=== PATIENT | female | born 1955 | race Hispanic/Latino ===

== ENCOUNTER 2017-12-11 16:30 | Emergency (ER) | payer MEDICARE ==
[~2017-12-11 16:30] MED LIST: AEC81 PO; CARV3.12 PO; FENO40TA4 PO; FENO48TA4 PO; LISI-613 PO; NAPR-1023 PO; TRAM50TA4 PO
[2017-12-11 17:06] LABS: BASOPHILS % (AUTO) 0.9 % (0.0-5.0); EOSINOPHILS % (AUTO) 1.4 % (0.0-8.0); HEMATOCRIT 39.1 % (36-48); LYMPHOCYTES % (AUTO) 32.1 % (21.0-51.0); MEAN CORPUSCULAR HEMOGLOBIN 30.9 pg (27.0-33.0); MEAN CORPUSCULAR HGB CONC 34.5 g/dL (32.0-36.0); MEAN CORPUSCULAR VOLUME 89.8 fL (79-99); MONOCYTES % (AUTO) 4.8 % (3.0-13.0); NEUTROPHILS % (AUTO) 60.8 % (40.0-77.0); PLATELET COUNT (AUTO) 244 K/uL (130-400); RED BLOOD CELL COUNT(AUTO) 4.35 MIL/uL (4.00-5.50); RED CELL DISTRIBUTION WIDTH 12.8 % (11.0-15.5); WHITE BLOOD COUNT (AUTO) 8.5 K/uL (4.8-10.8)
[2017-12-11 17:17] LABS: INR 0.95 (0.85-1.15); PARTIAL THROMBOPLASTIN TIME 23.8 SEC (26.3-35.5)
[2017-12-11 17:20] LABS: CREATININE 1.4 mg/dL (0.5-1.5); POTASSIUM 4.8 mmol/L (3.5-5.1)
[2017-12-11 17:22] LABS: ALBUMIN 4.4 g/dL (3.5-5.0); BILIRUBIN,TOTAL 0.4 mg/dL (0.2-1.0); TOTAL PROTEIN, SERUM 8.6 g/dL (6.0-8.3)
[2017-12-11] MEDS ORDERED: DiphenhydrAMINE HCL 50 MG/ML VIAL ONE (17:35)
[2017-12-11] MEDS ORDERED: ONDANSETRON HCL MDV 20ML 2 MG/ML VIAL ONE ×2 (17:36→19:40)
[2017-12-11] MEDS ORDERED: SODIUM CHLORIDE 0.9% 1000ML 1,000 ML IV ONE (17:36)
[2017-12-11 17:55] LABS: APPEARANCE,URINE Clear (CLEAR); BILIRUBIN,URINE Negative (NEGATIVE); COLOR,URINE Yellow (YELLOW); GLUCOSE, URINE (UA) Negative (NEGATIVE); KETONES,URINE Negative (NEGATIVE); LEUKOCYTE ESTERASE ,URINE Negative (NEGATIVE); NITRATE,URINE Negative (NEGATIVE); OCCULT BLOOD,URINE Negative (NEGATIVE); PH,URINE 6.5 (5.0-8.0); PROTEIN,URINE Trace (NEGATIVE); UROBILINOGEN,URINE 0.2 mg/dL (0.2-1.0)
[2017-12-11 18:10] LABS: BACTERIA,URINE Few /HPF (None Seen); RBC,URINE None Seen /HPF (0-1); SQUAMOUS EPITHELIAL CELL,UR 30-50 /HPF (0-2)
[2018-02-11] MEDS ORDERED: INSU3INS3 SQ ×2 (13:08)
[2018-02-11] MEDS ORDERED: TRAM50TA4 PO (13:08)
[2018-02-11] MEDS ORDERED: OMEP40CA37 PO (13:08)
== END 2017-12-11 20:41 | disposition home or self-care (01) ==
LOC: EDH 16:30
DX: R11.2 Nausea with vomiting, unspecified (principal); R20.2 Paresthesia of skin; M19.90 Unspecified osteoarthritis, unspecified site; E11.9 Type 2 diabetes mellitus without complications; E78.5 Hyperlipidemia, unspecified; I10 Essential (primary) hypertension; R79.1 Abnormal coagulation profile; Z90.49 Acquired absence of other specified parts of digestive tract; Z98.890 Other specified postprocedural states
CPT/HCPCS: 36415; 80053; 81001; 82948; 84484; 85025; 85610; 85730; 93005; 96361; 96374; 96375; 99285; J1200; J7030

== ENCOUNTER 2017-12-30 14:30 | Inpatient (IN) | payer MEDICARE ==
[2017-12-30 14:53] LABS: APPEARANCE,URINE Clear (CLEAR); BILIRUBIN,URINE Negative (NEGATIVE); COLOR,URINE Yellow (YELLOW); GLUCOSE, URINE (UA) >=1000 mg/dL (NEGATIVE); KETONES,URINE Trace mg/dL (NEGATIVE); LEUKOCYTE ESTERASE ,URINE Negative (NEGATIVE); NITRATE,URINE Positive (NEGATIVE); OCCULT BLOOD,URINE Negative (NEGATIVE); PH,URINE 5.5 (5.0-8.0); PROTEIN,URINE Trace (NEGATIVE); UROBILINOGEN,URINE 0.2 mg/dL (0.2-1.0)
[2017-12-30 14:59] LABS: BASOPHILS % (AUTO) 0.4 % (0.0-5.0); EOSINOPHILS % (AUTO) 0.9 % (0.0-8.0); HEMATOCRIT 34.7 % (36-48); LYMPHOCYTES % (AUTO) 20.8 % (21.0-51.0); MEAN CORPUSCULAR HEMOGLOBIN 30.9 pg (27.0-33.0); MEAN CORPUSCULAR HGB CONC 35.1 g/dL (32.0-36.0); MEAN CORPUSCULAR VOLUME 88.1 fL (79-99); MONOCYTES % (AUTO) 6.2 % (3.0-13.0); NEUTROPHILS % (AUTO) 71.7 % (40.0-77.0); PLATELET COUNT (AUTO) 209 K/uL (130-400); RED BLOOD CELL COUNT(AUTO) 3.94 MIL/uL (4.00-5.50); RED CELL DISTRIBUTION WIDTH 12.7 % (11.0-15.5); WHITE BLOOD COUNT (AUTO) 10.1 K/uL (4.8-10.8)
[2017-12-30 15:02] LABS: BACTERIA,URINE Few /HPF (None Seen); RBC,URINE None Seen /HPF (0-1); WBC,URINE 0-1 /HPF (0-1)
[2017-12-30 15:10] LABS: INR 0.96 (0.85-1.15); PARTIAL THROMBOPLASTIN TIME 21.2 SEC (26.3-35.5); PROTHROMBIN TIME 10.1 SEC (9.6-11.6)
[2017-12-30 15:22] LABS: ALBUMIN 3.9 g/dL (3.5-5.0); BILIRUBIN,TOTAL 0.5 mg/dL (0.2-1.0); CREATININE 1.7 mg/dL (0.5-1.5); POTASSIUM 4.3 mmol/L (3.5-5.1); TOTAL PROTEIN, SERUM 7.6 g/dL (6.0-8.3)
[2017-12-30] MEDS ORDERED: SODIUM CHLORIDE 0.9% 1000ML 1,000 ML IV ONE (15:28)
[2017-12-30] MEDS ORDERED: INSULIN HUMULIN R 100 UNIT/ML 3ML ONE (15:29)
[2017-12-30] MEDS ORDERED: KETOROLAC TROMETHAMINE 30MG/ML ONE (15:35)
[2017-12-30] MEDS ORDERED: ONDANSETRON HCL 4 MG/2 ML VIAL ONE (16:58)
[2017-12-30] MEDS ORDERED: MORPHINE SULFATE 4 MG/1ML SYG ONE (16:58)
[2017-12-30] MEDS ORDERED: FENO145T37 PO (19:07)
[2017-12-30] MEDS ORDERED: IBUP-2070 PO (19:07)
[2017-12-30] MEDS ORDERED: METF10004 PO (19:07)
[2017-12-30] MEDS ORDERED: HYDR12.54 PO (19:07)
[2017-12-30] MEDS: MORPHINE SULFATE 4 MG/1ML SYG IVP PRN (19:51)
[2017-12-30 20:00] VITALS: BP 151/69
[2017-12-30] MEDS ORDERED: IBUPROFEN 600 MG TABLET PO SCH (20:30)
[2017-12-30] MEDS ORDERED: INSULIN R PO SS1 SQ SCH (21:00)
[2017-12-30] MEDS: FAMOTIDINE/PF 20 MG/2 ML VIAL IV SCH (21:19)
[2017-12-30] MEDS: DEXTROSE 5 % AND 0.9 % NACL 1,000 ML IV SCH (21:19)
[2017-12-31] VITALS: BP 133/57
[2017-12-31] MEDS: INSULIN HUMULIN R 100 UNIT/ML 3ML SQ SCH ×3 (00:16→13:10)
[2017-12-31] MEDS: ONDANSETRON HCL 4 MG/2 ML VIAL IVP PRN ×2 (02:03→12:59)
[2017-12-31] MEDS: MORPHINE SULFATE 4 MG/1ML SYG IVP PRN ×5 (02:03→21:26)
[2017-12-31] MEDS: DEXTROSE 5 % AND 0.9 % NACL 1,000 ML IV SCH ×2 (02:05→08:48)
[2017-12-31 04:00] VITALS: BP 155/66
[2017-12-31 04:47] LABS: HEMATOCRIT 29.5 % (36-48); MEAN CORPUSCULAR HEMOGLOBIN 31.5 pg (27.0-33.0); MEAN CORPUSCULAR HGB CONC 35.6 g/dL (32.0-36.0); MEAN CORPUSCULAR VOLUME 88.5 fL (79-99); PLATELET COUNT (AUTO) 173 K/uL (130-400); RED BLOOD CELL COUNT(AUTO) 3.34 MIL/uL (4.00-5.50); RED CELL DISTRIBUTION WIDTH 13.2 % (11.0-15.5); WHITE BLOOD COUNT (AUTO) 7.8 K/uL (4.8-10.8)
[2017-12-31 05:00] LABS: CREATININE 1.2 mg/dL (0.5-1.5); POTASSIUM 3.8 mmol/L (3.5-5.1)
[2017-12-31 07:30] VITALS: BP 144/67
[2017-12-31] MEDS: FAMOTIDINE/PF 20 MG/2 ML VIAL IV SCH ×2 (08:39→20:21)
[2017-12-31] MEDS: ENOXAPARIN SODIUM 40 MG/0.4 ML SYRINGE SQ SCH (08:39)
[2017-12-31 10:02] LABS: CHOLESTEROL 197 mg/dL (<200); HDL CHOLESTEROL 25 mg/dL (35-85); LDL DIRECT 87 mg/dL (0-99); TRIGLYCERIDES 524 mg/dL (30-200)
[2017-12-31 11:00] VITALS: BP 159/78
[2017-12-31] MEDS ORDERED: SODIUM CHLORIDE 0.9% 1000ML 1,000 ML IV ONE (12:57)
[2017-12-31 16:00] VITALS: BP 195/79
[2017-12-31] MEDS: HYDRALAZINE HCL 20 MG/ML VIAL IV PRN (16:51)
[2017-12-31] MEDS: FENOFIBRATE NANOCRYSTALLIZED 145 MG TAB PO SCH (20:21)
[2017-12-31 20:57] VITALS: BP 143/74
[2017-12-31] MEDS: SODIUM CHLORIDE 0.9% 1000ML 1,000 ML IV SCH (21:20)
[2018-01-01] VITALS (7 sets, daily range): BP systolic 131–158; BP diastolic 62–81
[2018-01-01] MEDS: MORPHINE SULFATE 4 MG/1ML SYG IVP PRN ×3 (01:33→17:06)
[2018-01-01] MEDS: INSULIN HUMULIN R 100 UNIT/ML 3ML SQ SCH ×4 (01:37→16:49)
[2018-01-01 05:04] LABS: HEMATOCRIT 28.8 % (36-48); MEAN CORPUSCULAR HEMOGLOBIN 31.3 pg (27.0-33.0); MEAN CORPUSCULAR HGB CONC 35.6 g/dL (32.0-36.0); PLATELET COUNT (AUTO) 176 K/uL (130-400); RED BLOOD CELL COUNT(AUTO) 3.27 MIL/uL (4.00-5.50); RED CELL DISTRIBUTION WIDTH 13.2 % (11.0-15.5); WHITE BLOOD COUNT (AUTO) 9.8 K/uL (4.8-10.8)
[2018-01-01 05:29] LABS: POTASSIUM 3.2 mmol/L (3.5-5.1)
[2018-01-01] MEDS ORDERED: ACETAMINOPHEN 325 MG TAB PO PRN ×2 (10:00)
[2018-01-01] MEDS ORDERED: GUAIFENESIN-DM 200/20 MG 10 ML PO PRN (10:00)
[2018-01-01] MEDS ORDERED: HYDRALAZINE HCL 20 MG/ML VIAL IV PRN (10:00)
[2018-01-01] MEDS ORDERED: MAG HYDROX/AL HYDROX/SIMETH ES 30 ML SUSP UDCUP PO PRN (10:00)
[2018-01-01] MEDS ORDERED: LIDOCAINE HCL-MPF 1% 2ML VIAL IVP PRN (10:00)
[2018-01-01] MEDS ORDERED: POTASSIUM CHLORIDE 10% ELIXIR 20 MEQ/15 ML UDCUP PO PRN (10:00)
[2018-01-01] MEDS ORDERED: LACTULOSE 20 GM/30 ML UDCUP PO PRN (10:00)
[2018-01-01] MEDS ORDERED: MAGNESIUM HYDROXIDE 30 ML/UDCUP PO PRN (10:00)
[2018-01-01] MEDS ORDERED: SIMETHICONE 80 MG TAB.CHEW PO SCH (10:00)
[2018-01-01] MEDS ORDERED: NITROGLYCERIN 0.4 MG SL TAB SL PRN (10:00)
[2018-01-01] MEDS ORDERED: ONDANSETRON HCL 4 MG/2 ML VIAL IV PRN (10:00)
[2018-01-01] MEDS: SODIUM CHLORIDE 0.9% 1000ML 1,000 ML IV SCH ×2 (11:04→16:13)
[2018-01-01] MEDS: FAMOTIDINE/PF 20 MG/2 ML VIAL IV SCH ×2 (11:04→20:34)
[2018-01-01] MEDS: ENOXAPARIN SODIUM 40 MG/0.4 ML SYRINGE SQ SCH (11:05)
[2018-01-01] MEDS: SIMETHICONE 80 MG TAB.CHEW PO SCH ×3 (12:18→20:35)
[2018-01-01] MEDS: POTASSIUM CHLORIDE 20MEQ/100ML 100 ML IV PRN ×2 (16:13→20:35)
[2018-01-01] MEDS: FENOFIBRATE NANOCRYSTALLIZED 145 MG TAB PO SCH (20:35)
[2018-01-02] MEDS: SODIUM CHLORIDE 0.9% 1000ML 1,000 ML IV SCH ×2 (03:01→15:34)
[2018-01-02] MEDS: MORPHINE SULFATE 4 MG/1ML SYG IVP PRN ×3 (03:18→22:35)
[2018-01-02 04:16] VITALS: BP 156/70
[2018-01-02 05:24] LABS: HEMATOCRIT 25.9 % (36-48); MEAN CORPUSCULAR HEMOGLOBIN 32.9 pg (27.0-33.0); MEAN CORPUSCULAR HGB CONC 37.3 g/dL (32.0-36.0); MEAN CORPUSCULAR VOLUME 88.3 fL (79-99); PLATELET COUNT (AUTO) 143 K/uL (130-400); RED BLOOD CELL COUNT(AUTO) 2.93 MIL/uL (4.00-5.50); RED CELL DISTRIBUTION WIDTH 12.8 % (11.0-15.5); WHITE BLOOD COUNT (AUTO) 6.5 K/uL (4.8-10.8)
[2018-01-02 05:33] LABS: BAND NEUTROPHILS % (MANUAL) 5 % (0-2); LYMPHOCYTES % (MANUAL) 22 % (22-44); MAN.DIFF COMMENT-IMPRESSION MANUAL DIFFERENTIAL; MONOCYTES % (MANUAL) 10 % (2-9); PLATELET MORPHOLOGY COMMENT ADEQUATE; SEGMENTED NEUTROPHILS % 63 % (40-70)
[2018-01-02 05:36] LABS: ALBUMIN 2.6 g/dL (3.5-5.0); BILIRUBIN,TOTAL 0.6 mg/dL (0.2-1.0); CREATININE 0.8 mg/dL (0.5-1.5); MAGNESIUM 1.1 mg/dL (1.80-2.40); POTASSIUM 4.1 mmol/L (3.5-5.1); TOTAL PROTEIN, SERUM 6.1 g/dL (6.0-8.3)
[2018-01-02] MEDS: INSULIN HUMULIN R 100 UNIT/ML 3ML SQ SCH ×5 (06:00→21:04)
[2018-01-02 07:30] VITALS: BP 144/66
[2018-01-02] MEDS: SIMETHICONE 80 MG TAB.CHEW PO SCH ×4 (09:04→20:36)
[2018-01-02] MEDS: FAMOTIDINE/PF 20 MG/2 ML VIAL IV SCH ×2 (09:05→20:35)
[2018-01-02] MEDS: ENOXAPARIN SODIUM 40 MG/0.4 ML SYRINGE SQ SCH (09:05)
[2018-01-02] MEDS ORDERED: MAGNESIUM 2GM PREMIX 50ML 50 ML IV SCH (09:30)
[2018-01-02] MEDS ORDERED: BISACODYL 5 MG TABLET.DR PO PRN (09:30)
[2018-01-02] MEDS ORDERED: ONDANSETRON HCL MDV 20ML 2 MG/ML VIAL IVP PRN (09:51)
[2018-01-02 11:00] VITALS: BP 153/72
[2018-01-02 16:00] VITALS: BP 179/82
[2018-01-02] MEDS: HYDRALAZINE HCL 20 MG/ML VIAL IV PRN (18:59)
[2018-01-02 20:00] VITALS: BP 174/75
[2018-01-02] MEDS: FENOFIBRATE NANOCRYSTALLIZED 145 MG TAB PO SCH (20:35)
[2018-01-02] MEDS ORDERED: LISINOPRIL 40 MG TABLET ONE (20:56)
[2018-01-03] VITALS (7 sets, daily range): BP systolic 137–174; BP diastolic 59–85
[2018-01-03] MEDS: MORPHINE SULFATE 4 MG/1ML SYG IVP PRN ×4 (02:30→20:16)
[2018-01-03 05:22] LABS: CREATININE 0.8 mg/dL (0.5-1.5); POTASSIUM 3.9 mmol/L (3.5-5.1)
[2018-01-03] MEDS: SODIUM CHLORIDE 0.9% 1000ML 1,000 ML IV SCH (06:27)
[2018-01-03] MEDS: INSULIN HUMULIN R 100 UNIT/ML 3ML SQ SCH ×4 (07:40→20:19)
[2018-01-03] MEDS: FAMOTIDINE/PF 20 MG/2 ML VIAL IV SCH ×2 (08:18→20:08)
[2018-01-03] MEDS: ENOXAPARIN SODIUM 40 MG/0.4 ML SYRINGE SQ SCH (08:22)
[2018-01-03] MEDS: LISINOPRIL 20 MG TABLET PO SCH (08:22)
[2018-01-03] MEDS: SIMETHICONE 80 MG TAB.CHEW PO SCH ×4 (08:22→20:09)
[2018-01-03 09:37] LABS: AMYLASE 30 U/L (25-115); LIPASE 258 U/L (114-286)
[2018-01-03] MEDS: FENOFIBRATE NANOCRYSTALLIZED 145 MG TAB PO SCH (20:08)
[2018-01-04 04:00] VITALS: BP 142/61
[2018-01-04 04:42] LABS: ALBUMIN 2.8 g/dL (3.5-5.0); BILIRUBIN,TOTAL 0.5 mg/dL (0.2-1.0); CREATININE 0.8 mg/dL (0.5-1.5); POTASSIUM 3.6 mmol/L (3.5-5.1); TOTAL PROTEIN, SERUM 6.4 g/dL (6.0-8.3)
[2018-01-04] MEDS: MORPHINE SULFATE 4 MG/1ML SYG IVP PRN ×4 (04:45→22:21)
[2018-01-04] MEDS: INSULIN HUMULIN R 100 UNIT/ML 3ML SQ SCH ×4 (06:21→22:13)
[2018-01-04 07:39] VITALS: BP 142/68
[2018-01-04] MEDS: SIMETHICONE 80 MG TAB.CHEW PO SCH ×4 (08:30→22:10)
[2018-01-04] MEDS: ENOXAPARIN SODIUM 40 MG/0.4 ML SYRINGE SQ SCH (08:31)
[2018-01-04] MEDS: FAMOTIDINE/PF 20 MG/2 ML VIAL IV SCH ×2 (08:31→22:10)
[2018-01-04] MEDS: LISINOPRIL 20 MG TABLET PO SCH (08:31)
[2018-01-04] MEDS ORDERED: SIME180C46 PO (10:12)
[2018-01-04] MEDS ORDERED: TRAM50TA2 PO (10:12)
[2018-01-04 11:27] VITALS: BP 127/59
[2018-01-04] MEDS: POTASSIUM CHLORIDE 20 MEQ ERTAB PO PRN ×2 (11:37→12:45)
[2018-01-04] MEDS: LEVOFLOXACIN 500 MG/D5W 100 ML 100 ML IV SCH (11:38)
[2018-01-04 16:00] VITALS: BP 161/78
[2018-01-04] MEDS: SODIUM CHLORIDE 0.9% 1000ML 1,000 ML IV SCH (17:06)
[2018-01-04] MEDS ORDERED: DIATR MEGLU/DIATRIZOATE SODIUM 30 ML BOTTLE ONE (17:40)
[2018-01-04 20:17] VITALS: BP 165/73
[2018-01-04] MEDS ORDERED: IOPAMIDOL-370 75 ML VIAL IV ONE (20:52)
[2018-01-04] MEDS: FENOFIBRATE NANOCRYSTALLIZED 145 MG TAB PO SCH (22:10)
[2018-01-05 01:06] VITALS: BP 142/69
[2018-01-05] MEDS: MORPHINE SULFATE 4 MG/1ML SYG IVP PRN ×4 (03:40→21:50)
[2018-01-05 04:35] VITALS: BP 161/69
[2018-01-05 05:41] LABS: HEMATOCRIT 29.7 % (36-48); MEAN CORPUSCULAR HEMOGLOBIN 30.3 pg (27.0-33.0); MEAN CORPUSCULAR HGB CONC 34.5 g/dL (32.0-36.0); MEAN CORPUSCULAR VOLUME 87.8 fL (79-99); PLATELET COUNT (AUTO) 229 K/uL (130-400); RED BLOOD CELL COUNT(AUTO) 3.38 MIL/uL (4.00-5.50); RED CELL DISTRIBUTION WIDTH 12.8 % (11.0-15.5); WHITE BLOOD COUNT (AUTO) 5.6 K/uL (4.8-10.8)
[2018-01-05 05:55] LABS: ALBUMIN 2.7 g/dL (3.5-5.0); BILIRUBIN,TOTAL 0.4 mg/dL (0.2-1.0); CREATININE 0.9 mg/dL (0.5-1.5); POTASSIUM 3.7 mmol/L (3.5-5.1); TOTAL PROTEIN, SERUM 6.3 g/dL (6.0-8.3)
[2018-01-05] MEDS: INSULIN HUMULIN R 100 UNIT/ML 3ML SQ SCH ×4 (05:55→21:26)
[2018-01-05 07:44] VITALS: BP 150/62
[2018-01-05] MEDS: FAMOTIDINE/PF 20 MG/2 ML VIAL IV SCH ×2 (09:49→21:19)
[2018-01-05] MEDS: SODIUM CHLORIDE 0.9% 1000ML 1,000 ML IV SCH ×2 (09:49→21:19)
[2018-01-05] MEDS: LISINOPRIL 20 MG TABLET PO SCH (09:50)
[2018-01-05] MEDS: LEVOFLOXACIN 500 MG/D5W 100 ML 100 ML IV SCH (09:50)
[2018-01-05] MEDS: SIMETHICONE 80 MG TAB.CHEW PO SCH ×4 (09:50→21:19)
[2018-01-05] MEDS: ENOXAPARIN SODIUM 40 MG/0.4 ML SYRINGE SQ SCH (09:51)
[2018-01-05 11:30] VITALS: BP 145/73
[2018-01-05 16:25] VITALS: BP 146/81
[2018-01-05] MEDS: FENOFIBRATE NANOCRYSTALLIZED 145 MG TAB PO SCH (21:18)
[2018-01-05 21:23] VITALS: BP 151/75
[2018-01-06 00:49] VITALS: BP 137/64
[2018-01-06 04:54] VITALS: BP 139/61
[2018-01-06] MEDS: INSULIN HUMULIN R 100 UNIT/ML 3ML SQ SCH ×2 (05:49→12:15)
[2018-01-06 05:52] LABS: ALBUMIN 2.8 g/dL (3.5-5.0); BILIRUBIN,TOTAL 0.4 mg/dL (0.2-1.0); CREATININE 0.9 mg/dL (0.5-1.5); POTASSIUM 3.7 mmol/L (3.5-5.1); TOTAL PROTEIN, SERUM 6.3 g/dL (6.0-8.3)
[2018-01-06 07:48] VITALS: BP 148/75
[2018-01-06] MEDS: SIMETHICONE 80 MG TAB.CHEW PO SCH (08:11)
[2018-01-06] MEDS: LISINOPRIL 20 MG TABLET PO SCH (08:11)
[2018-01-06] MEDS: FAMOTIDINE/PF 20 MG/2 ML VIAL IV SCH (08:11)
[2018-01-06] MEDS: POTASSIUM CHLORIDE 20 MEQ ERTAB PO PRN ×2 (08:12→12:16)
[2018-01-06] MEDS: ENOXAPARIN SODIUM 40 MG/0.4 ML SYRINGE SQ SCH (08:12)
[2018-01-06] MEDS: MORPHINE SULFATE 4 MG/1ML SYG IVP PRN (08:13)
[2018-01-06] MEDS ORDERED: LEVO500T2 PO (10:35)
[2018-01-06] MEDS: LEVOFLOXACIN 500 MG/D5W 100 ML 100 ML IV SCH (11:15)
[2018-01-06 11:36] VITALS: BP 151/71
[2018-02-11] MEDS ORDERED: TRAM50TA4 PO (13:08)
[2018-02-11] MEDS ORDERED: OMEP40CA37 PO (13:08)
[2018-02-11] MEDS ORDERED: INSU3INS3 SQ ×2 (13:08)
== END 2018-01-06 13:27 | disposition home or self-care (01) | DRG 439 ==
LOC: EDH 14:30 → EDHIP 15:49 → 4BH 18:33
PROVIDERS: ADMIT Internal Medicine; ATTEND Internal Medicine
DX: K85.90 Acute pancreatitis without necrosis or infection, unspecified (principal); N17.9 Acute kidney failure, unspecified; K86.3 Pseudocyst of pancreas; N39.0 Urinary tract infection, site not specified; K76.0 Fatty (change of) liver, not elsewhere classified; E11.65 Type 2 diabetes mellitus with hyperglycemia; B96.1 Klebsiella pneumoniae [K. pneumoniae] as the cause of diseases classified elsewhere; E86.0 Dehydration; K86.1 Other chronic pancreatitis; E78.5 Hyperlipidemia, unspecified; I10 Essential (primary) hypertension; M19.90 Unspecified osteoarthritis, unspecified site; Z79.4 Long term (current) use of insulin; Z90.49 Acquired absence of other specified parts of digestive tract; Z86.73 Personal history of transient ischemic attack (TIA), and cerebral infarction without residual deficits; Z83.3 Family history of diabetes mellitus; Z82.3 Family history of stroke
CPT/HCPCS: 36415; 71045; 74176; 74178; 80048; 80053; 80061; 81001; 82009; 82150; 82550; 82553; 82948; 83690; 83735; 84484; 85025; 85027; 85610; 85730; 87088; 87186; 93005; J0360; J1650; J1815; J1885; J1956; J2270; J2405; J3475; J3480; J3490; J7030; J7042; Q9963; Q9967

== ENCOUNTER 2018-01-26 15:33 | Observation (INO) | payer MEDICARE ==
[~2018-01-26] VITALS: Ht 154.9 cm; Wt 59.4 kg
[~2018-01-26 15:33] MED LIST changes: -AEC81 PO; -CARV3.12 PO; +FENO145T37 PO; -FENO40TA4 PO; -FENO48TA4 PO; +HYDR12.54 PO; +IBUP-2070 PO; +LEVO500T2 PO; +METF10004 PO; -NAPR-1023 PO; +SIME180C46 PO; +TRAM50TA2 PO; -TRAM50TA4 PO
[2018-01-26] MEDS ORDERED: ONDANSETRON HCL 4 MG/2 ML VIAL ONE (16:14)
[2018-01-26 16:15] LABS: BASOPHILS % (AUTO) 0.7 % (0.0-5.0); EOSINOPHILS % (AUTO) 2.4 % (0.0-8.0); HEMATOCRIT 35.9 % (36-48); LYMPHOCYTES % (AUTO) 20.2 % (21.0-51.0); MEAN CORPUSCULAR HEMOGLOBIN 30.7 pg (27.0-33.0); MEAN CORPUSCULAR HGB CONC 34.3 g/dL (32.0-36.0); MEAN CORPUSCULAR VOLUME 89.5 fL (79-99); MONOCYTES % (AUTO) 7.2 % (3.0-13.0); NEUTROPHILS % (AUTO) 69.5 % (40.0-77.0); PLATELET COUNT (AUTO) 173 K/uL (130-400); RED BLOOD CELL COUNT(AUTO) 4.01 MIL/uL (4.00-5.50); RED CELL DISTRIBUTION WIDTH 13.2 % (11.0-15.5); WHITE BLOOD COUNT (AUTO) 6.8 K/uL (4.8-10.8)
[2018-01-26 16:28] LABS: INR 0.94 (0.85-1.15); PARTIAL THROMBOPLASTIN TIME 22.7 SEC (26.3-35.5); PROTHROMBIN TIME 9.9 SEC (9.6-11.6)
[2018-01-26] MEDS ORDERED: SODIUM CHLORIDE 0.9% 1000ML 1,000 ML IV ONE ×2 (16:30→16:50)
[2018-01-26 16:36] LABS: APPEARANCE,URINE Clear (CLEAR); BILIRUBIN,URINE Negative (NEGATIVE); COLOR,URINE Yellow (YELLOW); GLUCOSE, URINE (UA) >=1000 mg/dL (NEGATIVE); KETONES,URINE Negative (NEGATIVE); LEUKOCYTE ESTERASE ,URINE Negative (NEGATIVE); NITRATE,URINE Negative (NEGATIVE); OCCULT BLOOD,URINE Negative (NEGATIVE); PROTEIN,URINE Negative (NEGATIVE); UROBILINOGEN,URINE 0.2 mg/dL (0.2-1.0)
[2018-01-26 16:40] LABS: ALANINE AMINOTRANSFERASE 33 U/L (12-78); ALBUMIN 3.8 g/dL (3.5-5.0); AMYLASE 27 U/L (25-115); ASPARTATE AMINOTRANSFERASE 25 U/L (10-37); BILIRUBIN,TOTAL 0.6 mg/dL (0.2-1.0); CARBON DIOXIDE 25 mmol/L (21-32); CHLORIDE 92 mmol/L (101-111); CREATINE KINASE MB < 0.5 ng/mL (0.5-3.6); CREATINE KINASE, TOTAL 43 U/L (21-232); CREATININE 1.8 mg/dL (0.5-1.5); GLOMERULAR FILTR. RATE CALC 30 mL/min (>60); SODIUM SERUM 130 mmol/L (136-145); TOTAL PROTEIN, SERUM 7.7 g/dL (6.0-8.3); UREA NITROGEN, BLOOD 27 mg/dL (7-18)
[2018-01-26 16:42] LABS: GLUCOSE,RANDOM 708 mg/dL (70-105)
[2018-01-26 16:44] LABS: AMPHET/METH SCREEN,URINE NEGATIVE (NEGATIVE); BARBITURATE SCREEN, URINE NEGATIVE (NEGATIVE); BENZODIAZEPINES SCREEN,URINE NEGATIVE (NEGATIVE); CANNABINOID SCREEN,URINE NEGATIVE (NEGATIVE); COCAINE SCREEN,URINE NEGATIVE (NEGATIVE); OPIATE SCREEN,URINE NEGATIVE (NEGATIVE); PHENCYCLIDINE SCREEN,URINE NEGATIVE (NEGATIVE)
[2018-01-26 16:47] LABS: BACTERIA,URINE None Seen /HPF (None Seen); RBC,URINE None Seen /HPF (0-1); WBC,URINE None Seen /HPF (0-1)
[2018-01-26] MEDS ORDERED: INSULIN HUMULIN R 100 UNIT/ML 3ML ONE ×2 (16:47→18:16)
[2018-01-26] MEDS ORDERED: SODIUM CHLORIDE 0.9% 1000ML 1,000 ML IV SCH (19:15)
[2018-01-26] MEDS ORDERED: GLUCAGON 1MG KIT 1 MG ML IM PRN (19:15)
[2018-01-26] MEDS ORDERED: DEXTROSE 50%-WATER 50 ML DISP.SYRIN IV PRN (19:15)
[2018-01-26 21:37] VITALS: BP 153/71
[2018-01-26] MEDS: INSULIN GLARGINE 100 UNITS/ML 10 ML VIAL SQ SCH (22:37)
[2018-01-26] MEDS: INSULIN HUMULIN R 100 UNIT/ML 3ML SQ SCH (22:38)
[2018-01-26] MEDS ORDERED: ONDANSETRON HCL MDV 20ML 2 MG/ML VIAL IVP PRN (22:45)
[2018-01-26] MEDS ORDERED: ACETAMINOPHEN 325 MG TAB PO PRN (22:45)
[2018-01-26] MEDS ORDERED: HYDRALAZINE HCL 20 MG/ML VIAL IV PRN (22:45)
[2018-01-26 23:00] VITALS: BP 132/54
[2018-01-27 03:00] VITALS: BP 130/57
[2018-01-27 05:44] LABS: BASOPHILS % (AUTO) 0.7 % (0.0-5.0); EOSINOPHILS % (AUTO) 5.8 % (0.0-8.0); HEMATOCRIT 30.3 % (36-48); LYMPHOCYTES % (AUTO) 41.9 % (21.0-51.0); MEAN CORPUSCULAR HEMOGLOBIN 31.9 pg (27.0-33.0); MEAN CORPUSCULAR HGB CONC 35.9 g/dL (32.0-36.0); MEAN CORPUSCULAR VOLUME 88.7 fL (79-99); MONOCYTES % (AUTO) 9.1 % (3.0-13.0); NEUTROPHILS % (AUTO) 42.5 % (40.0-77.0); NUCLEATED RED BLOOD CELLS 0.1 % (0.0-0.19); PLATELET COUNT (AUTO) 154 K/uL (130-400); RED BLOOD CELL COUNT(AUTO) 3.41 MIL/uL (4.00-5.50); WHITE BLOOD COUNT (AUTO) 5.7 K/uL (4.8-10.8)
[2018-01-27 06:11] LABS: BILIRUBIN,TOTAL 0.3 mg/dL (0.2-1.0); CREATININE 1.2 mg/dL (0.5-1.5); POTASSIUM 3.8 mmol/L (3.5-5.1); TOTAL PROTEIN, SERUM 6.1 g/dL (6.0-8.3)
[2018-01-27] MEDS: INSULIN GLARGINE 100 UNITS/ML 10 ML VIAL SQ SCH (06:27)
[2018-01-27] MEDS: INSULIN HUMULIN R 100 UNIT/ML 3ML SQ SCH ×3 (06:28→17:55)
[2018-01-27 07:00] VITALS: BP 132/57
[2018-01-27] MEDS ORDERED: ENOXAPARIN SODIUM 40 MG/0.4 ML SYRINGE SQ SCH (09:00)
[2018-01-27 11:00] VITALS: BP 129/67
[2018-01-27 16:00] VITALS: BP 131/63
[2018-02-11] MEDS ORDERED: INSU3INS3 SQ ×2 (13:08)
[2018-02-11] MEDS ORDERED: OMEP40CA37 PO (13:08)
[2018-02-11] MEDS ORDERED: TRAM50TA4 PO (13:08)
== END 2018-01-27 18:20 | disposition home or self-care (01) ==
LOC: EDH 15:33 → EDHIP 17:15 → 3CH 21:24
PROVIDERS: ADMIT Internal Medicine Nephrology; ATTEND Internal Medicine Nephrology
DX: E11.00 Type 2 diabetes mellitus with hyperosmolarity without nonketotic hyperglycemic-hyperosmolar coma (NKHHC) (principal); E87.1 Hypo-osmolality and hyponatremia; E86.0 Dehydration; E78.5 Hyperlipidemia, unspecified; R63.1 Polydipsia; Z83.3 Family history of diabetes mellitus; Z79.4 Long term (current) use of insulin
CPT/HCPCS: 36415 ×2; 80053 ×2; 80305; 81001; 82009; 82150; 82550; 82553; 82948 ×7; 83036; 84484; 85025 ×2; 85610; 85730; 93005; 96360; 96361; 96372 ×2; 99285; G0378 ×25; J1650; J1815 ×5; J2405; J7030 ×3

== ENCOUNTER 2018-02-12 06:45 | Day surgery (SDC) | payer MEDICARE ==
[~2018-02-12] VITALS: Ht 152.4 cm; Wt 63.5 kg
[~2018-02-12 06:45] MED LIST changes: -IBUP-2070 PO; +INSU3INS3 SQ; -LEVO500T2 PO; -LISI-613 PO; +OMEP40CA37 PO; -SIME180C46 PO; +SODIUM CHLORIDE 0.9% 1000ML 1,000 ML IV ONE; -TRAM50TA2 PO; +TRAM50TA4 PO
[2018-02-12 07:04] VITALS: BP 175/67
[2018-02-12] MEDS ORDERED: PROPOFOL 10 MG/ML 20ML VIAL IV ONE (07:42)
[2018-02-12 07:57] VITALS: BP 106/42
== END 2018-02-12 08:30 | disposition home or self-care (01) ==
LOC: DAH 06:45 → ENDO 06:45
PROVIDERS: ATTEND Internal Medicine Gastroenterology
DX: K86.89 Other specified diseases of pancreas (principal); K31.89 Other diseases of stomach and duodenum; E11.9 Type 2 diabetes mellitus without complications; E78.5 Hyperlipidemia, unspecified; I10 Essential (primary) hypertension; M19.90 Unspecified osteoarthritis, unspecified site; Z79.899 Other long term (current) drug therapy; Z79.4 Long term (current) use of insulin; Z90.49 Acquired absence of other specified parts of digestive tract; Z96.659 Presence of unspecified artificial knee joint
CPT/HCPCS: 43237; 82948 ×2; 93005; A4606; J2704; J7030; 43231

== ENCOUNTER → 2018-07-09 | Outpatient (CLI) | payer MEDICARE ==
[~2018-07-09] MED LIST changes: +METF-446 PO; -METF10004 PO; -SODIUM CHLORIDE 0.9% 1000ML 1,000 ML IV ONE
== END | disposition home or self-care (01) ==
LOC: RAH 08:40
PROVIDERS: ATTEND Internal Medicine Gastroenterology
DX: K30 Functional dyspepsia (principal)
CPT/HCPCS: 78264; A9541

== ENCOUNTER 2018-08-14 05:30 | Day surgery (SDC) | payer MEDICARE ==
[~2018-08-14] VITALS: Ht 154.9 cm; Wt 70.2 kg
[~2018-08-14 05:30] MED LIST changes: +NITR0.4T SL
[2018-08-14] MEDS ORDERED: SODIUM CHLORIDE 0.9% 1000ML 1,000 ML IV ONE (05:41)
[2018-08-14 05:59] VITALS: BP 198/77
[2018-08-14] MEDS ORDERED: PROPOFOL 10 MG/ML 20ML VIAL IV ONE (07:08)
[2018-08-14 07:17] VITALS: BP 133/61
[2018-08-14 07:22] VITALS: BP 139/65
[2018-08-14 07:27] VITALS: BP 149/70
[2018-08-14 07:34] VITALS: BP 139/64
== END 2018-08-14 07:48 | disposition home or self-care (01) ==
LOC: ENDO 05:30 → DAH 05:30 → ENDO 07:48
PROVIDERS: ATTEND Internal Medicine
DX: K86.1 Other chronic pancreatitis (principal); K31.89 Other diseases of stomach and duodenum; E11.9 Type 2 diabetes mellitus without complications; E78.5 Hyperlipidemia, unspecified; I10 Essential (primary) hypertension; M19.90 Unspecified osteoarthritis, unspecified site; Z79.899 Other long term (current) drug therapy; Z90.49 Acquired absence of other specified parts of digestive tract; Z98.890 Other specified postprocedural states; Z79.84 Long term (current) use of oral hypoglycemic drugs; K85.00 Idiopathic acute pancreatitis without necrosis or infection
CPT/HCPCS: 43237; 82948 ×2; A4606; J2704; J7030; 43231

== ENCOUNTER 2018-09-11 08:12 | Day surgery (SDC) | payer MEDICARE ==
[~2018-09-11] VITALS: Ht 152.4 cm; Wt 68.9 kg
[~2018-09-11 08:12] MED LIST changes: +SODIUM CHLORIDE 0.9% 1000ML 1,000 ML IV ONE
[2018-09-11 09:00] VITALS: BP 175/87
[2018-09-11] MEDS ORDERED: INSLAN SQ (09:19)
[2018-09-11] MEDS ORDERED: PROPOFOL 10 MG/ML 20ML VIAL IV ONE (10:05)
[2018-09-11 10:25] VITALS: BP 120/50
[2018-09-11 10:30] VITALS: BP 120/50
== END 2018-09-11 11:05 | disposition home or self-care (01) ==
LOC: DAH 08:12 → ENDO 08:12
PROVIDERS: ATTEND Internal Medicine
DX: K29.70 Gastritis, unspecified, without bleeding (principal); K86.9 Disease of pancreas, unspecified; E11.9 Type 2 diabetes mellitus without complications; E78.5 Hyperlipidemia, unspecified; I10 Essential (primary) hypertension; M19.90 Unspecified osteoarthritis, unspecified site; Z79.84 Long term (current) use of oral hypoglycemic drugs; Z79.899 Other long term (current) drug therapy; Z98.890 Other specified postprocedural states; R00.1 Bradycardia, unspecified; Z79.4 Long term (current) use of insulin
CPT/HCPCS: 43237; 82948 ×2; 93005; A4606; J2704; J7030; 43259

== ENCOUNTER → 2019-04-02 | Outpatient (CLI) | payer MEDICARE ==
[~2019-04-02] MED LIST changes: +INSLAN SQ; -INSU3INS3 SQ; -SODIUM CHLORIDE 0.9% 1000ML 1,000 ML IV ONE
== END | disposition home or self-care (01) ==
LOC: RAH 10:17
PROVIDERS: ATTEND Family Medicine
DX: Z12.31 Encounter for screening mammogram for malignant neoplasm of breast (principal)
CPT/HCPCS: 77067

== ENCOUNTER → 2019-05-22 | Outpatient (CLI) | payer MEDICARE ==
[~2019-05-22] MED LIST changes: +IOHEXOL-350 50ML VIAL IV ONE
== END | disposition home or self-care (01) ==
LOC: RAH 08:34
PROVIDERS: ATTEND Internal Medicine Gastroenterology
DX: K85.00 Idiopathic acute pancreatitis without necrosis or infection (principal); K76.89 Other specified diseases of liver; Z90.49 Acquired absence of other specified parts of digestive tract
CPT/HCPCS: 74170; Q9967 ×2

== ENCOUNTER 2019-08-05 23:27 | Emergency (ER) | payer MEDICARE ==
[~2019-08-05 23:27] MED LIST changes: -IOHEXOL-350 50ML VIAL IV ONE; +OMEP40CA13 PO; -OMEP40CA37 PO
[2019-08-06 00:02] LABS: APPEARANCE,URINE Clear (CLEAR); BILIRUBIN,URINE Negative (NEGATIVE); COLOR,URINE Yellow (YELLOW); GLUCOSE, URINE (UA) Negative (NEGATIVE); KETONES,URINE Negative (NEGATIVE); LEUKOCYTE ESTERASE ,URINE Small (NEGATIVE); NITRATE,URINE Negative (NEGATIVE); OCCULT BLOOD,URINE Trace (NEGATIVE); PROTEIN,URINE Negative (NEGATIVE); UROBILINOGEN,URINE 0.2 mg/dL (0.2-1.0)
[2019-08-06 00:18] LABS: BACTERIA,URINE Few /HPF (None Seen); RBC,URINE 0-1 /HPF (0-1)
[2019-08-06 00:40] LABS: BASOPHILS % (AUTO) 0.5 % (0.0-5.0); EOSINOPHILS % (AUTO) 1.6 % (0.0-8.0); HEMATOCRIT 35.4 % (36-48); LYMPHOCYTES % (AUTO) 26.4 % (21.0-51.0); MEAN CORPUSCULAR HEMOGLOBIN 29.9 pg (27.0-33.0); MEAN CORPUSCULAR HGB CONC 33.9 g/dL (32.0-36.0); MEAN CORPUSCULAR VOLUME 88.1 fL (79-99); MONOCYTES % (AUTO) 6.1 % (3.0-13.0); NEUTROPHILS % (AUTO) 65.2 % (40.0-77.0); PLATELET COUNT (AUTO) 197 K/uL (130-400); RED BLOOD CELL COUNT(AUTO) 4.02 MIL/uL (4.00-5.50); RED CELL DISTRIBUTION WIDTH 12.3 % (11.0-15.5); WHITE BLOOD COUNT (AUTO) 9.1 K/uL (4.8-10.8)
[2019-08-06 01:05] LABS: CREATININE 1.1 mg/dL (0.5-1.5); POTASSIUM 3.8 mmol/L (3.5-5.1)
[2019-08-06] MEDS ORDERED: SODIUM CHLORIDE 0.9% 500ML 500 ML IV ONE (01:09)
[2019-08-06] MEDS ORDERED: ONDANSETRON HCL 4 MG/2 ML VIAL ONE ×2 (01:09→02:39)
[2019-08-06] MEDS ORDERED: MORPHINE SULFATE 4 MG/1ML SYG ONE (01:09)
[2019-08-06] MEDS ORDERED: HYDRALAZINE HCL 20 MG/ML VIAL ONE (01:09)
[2019-08-06 01:10] LABS: ALBUMIN 3.5 g/dL (3.5-5.0); BILIRUBIN,TOTAL 0.3 mg/dL (0.2-1.0); TOTAL PROTEIN, SERUM 6.9 g/dL (6.0-8.3)
[2019-08-06] MEDS ORDERED: KETOROLAC TROMETHAMINE 30MG/ML ONE (02:00)
[2019-08-06] MEDS ORDERED: MAG HYDROX/AL HYDROX/SIMETH ES 30 ML SUSP UDCUP ONE (02:31)
[2019-08-06] MEDS ORDERED: LIDOCAINE HCL 2% VISCOUS 15 ML UDCUP ONE (02:31)
[2019-08-06] MEDS ORDERED: FAMOTIDINE/PF 20 MG/2 ML VIAL IV ONE (02:55)
== END 2019-08-06 03:39 | disposition home or self-care (01) ==
LOC: EDH 23:27
DX: K42.9 Umbilical hernia without obstruction or gangrene (principal); E11.9 Type 2 diabetes mellitus without complications; I10 Essential (primary) hypertension; M19.90 Unspecified osteoarthritis, unspecified site; E78.5 Hyperlipidemia, unspecified; Z90.49 Acquired absence of other specified parts of digestive tract
CPT/HCPCS: 36415; 80053; 81001; 82550; 82948; 83690; 84484; 85025; 93005; 96374; 96375; 96376; 99285; J0360; J1885; J2270; J2405 ×2; J3490; J7040

== ENCOUNTER 2019-10-25 22:56 | Emergency (ER) | payer OTHER, MEDICARE ==
[~2019-10-25 22:56] MED LIST changes: +FENO145T26 PO; -FENO145T37 PO
[2019-10-25 23:31] LABS: BASOPHILS % (AUTO) 0.4 % (0.0-5.0); EOSINOPHILS % (AUTO) 0.6 % (0.0-8.0); HEMATOCRIT 37.7 % (36-48); LYMPHOCYTES % (AUTO) 23.4 % (21.0-51.0); MEAN CORPUSCULAR HEMOGLOBIN 29.1 pg (27.0-33.0); MEAN CORPUSCULAR HGB CONC 33.2 g/dL (32.0-36.0); MEAN CORPUSCULAR VOLUME 87.9 fL (79-99); MONOCYTES % (AUTO) 5.9 % (3.0-13.0); NEUTROPHILS % (AUTO) 69.5 % (40.0-77.0); PLATELET COUNT (AUTO) 232 K/uL (130-400); RED BLOOD CELL COUNT(AUTO) 4.29 MIL/uL (4.00-5.50); RED CELL DISTRIBUTION WIDTH 12.3 % (11.0-15.5)
[2019-10-25] MEDS ORDERED: SODIUM CHLORIDE 0.9% 1000ML 1,000 ML IV ONE (23:35)
[2019-10-25 23:44] LABS: APPEARANCE,URINE Clear (CLEAR); BILIRUBIN,URINE Negative (NEGATIVE); COLOR,URINE Yellow (YELLOW); GLUCOSE, URINE (UA) 250 mg/dL (NEGATIVE); KETONES,URINE Trace mg/dL (NEGATIVE); LEUKOCYTE ESTERASE ,URINE Small (NEGATIVE); NITRATE,URINE Negative (NEGATIVE); OCCULT BLOOD,URINE Trace (NEGATIVE); PROTEIN,URINE POS 1+ mg/dL (NEGATIVE)
[2019-10-25 23:47] LABS: INR 0.93 (0.85-1.15); PARTIAL THROMBOPLASTIN TIME 24.9 SEC (26.3-35.5); PROTHROMBIN TIME 9.8 SEC (9.6-11.6)
[2019-10-25 23:54] LABS: CREATININE 1.2 mg/dL (0.5-1.5); POTASSIUM 4.1 mmol/L (3.5-5.1)
[2019-10-25 23:55] LABS: ALBUMIN 3.6 g/dL (3.5-5.0); BILIRUBIN,TOTAL 0.4 mg/dL (0.2-1.0); TOTAL PROTEIN, SERUM 7.8 g/dL (6.0-8.3)
[2019-10-26 00:02] LABS: BACTERIA,URINE Rare /HPF (None Seen); CALCIUM OXALATE CRYSTALS,UR Few /LPF (None Seen); SQUAMOUS EPITHELIAL CELL,UR Few /HPF (0-2)
[2019-10-26 00:08] LABS: ABG OXYGEN SATURATION 65.7 % (95.0-99.0); BASE EXCESS,VENOUS BLOOD GAS -2.5 (-2.0-3.0); HCO3,VENOUS BLOOD GAS 23.4 (21.0-28.0); PCO2,VENOUS BLOOD GAS 44 (32-45); PH,VENOUS BLOOD GAS 7.341 (7.350-7.450)
[2019-10-26] MEDS ORDERED: IOHEXOL-350 75 ML VIAL IV ONE (00:12)
[2019-10-26] MEDS ORDERED: LEVOFLOXACIN 750 MG/D5W 150 ML 150 ML ONE (01:45)
[2019-10-26] MEDS ORDERED: SODIUM CHLORIDE 0.9% 1000ML 1,000 ML IV ONE (01:45)
[2019-10-26] MEDS ORDERED: KETOROLAC TROMETHAMINE 30MG/ML ONE (01:46)
[2019-10-26] MEDS ORDERED: METRONIDAZOLE 500MG/100ML BAG 100 ML ONE (01:46)
== END 2019-10-26 03:49 | disposition home or self-care (01) ==
LOC: EDH 22:56
DX: K57.92 Diverticulitis of intestine, part unspecified, without perforation or abscess without bleeding (principal); M19.90 Unspecified osteoarthritis, unspecified site; E11.9 Type 2 diabetes mellitus without complications; E78.5 Hyperlipidemia, unspecified; I10 Essential (primary) hypertension; Z90.49 Acquired absence of other specified parts of digestive tract
CPT/HCPCS: 36415; 71045; 74177; 80053; 81001; 82010; 82550; 82803; 83605; 83690; 84484; 85025; 85610; 85730; 93005; 96365; 96367; 96375; 99285; J1885; J1956; J3490; J7030 ×2; Q9967

== ENCOUNTER 2019-10-29 19:19 | Emergency (ER) | payer OTHER, MEDICARE ==
[2019-10-29] MEDS ORDERED: IBUPROFEN 600 MG TABLET ONE (19:37)
== END 2019-10-29 21:20 | disposition home or self-care (01) ==
LOC: EDH 19:19
DX: S42.202A Unspecified fracture of upper end of left humerus, initial encounter for closed fracture (principal); M19.90 Unspecified osteoarthritis, unspecified site; E11.9 Type 2 diabetes mellitus without complications; E78.5 Hyperlipidemia, unspecified; I10 Essential (primary) hypertension; Z90.49 Acquired absence of other specified parts of digestive tract; V89.2XXA Person injured in unspecified motor-vehicle accident, traffic, initial encounter; Y93.89 Activity, other specified; Y92.488 Other paved roadways as the place of occurrence of the external cause; Y99.8 Other external cause status
CPT/HCPCS: 73030

== ENCOUNTER → 2019-11-07 | Outpatient (CLI) | payer OTHER, MEDICARE ==
[~2019-11-07] MED LIST changes: +GADODIAMIDE 10 MMOL/20 ML VIAL IV ONE
== END | disposition home or self-care (01) ==
LOC: RAH 07:38
PROVIDERS: ATTEND Internal Medicine Gastroenterology
DX: K76.89 Other specified diseases of liver (principal); K05.00 Acute gingivitis, plaque induced; Z90.49 Acquired absence of other specified parts of digestive tract
CPT/HCPCS: 36600; 74183; A9579

== ENCOUNTER → 2019-12-17 | Outpatient (CLI) | payer MEDICARE ==
[~2019-12-17] MED LIST changes: -GADODIAMIDE 10 MMOL/20 ML VIAL IV ONE
== END | disposition home or self-care (01) ==
LOC: RAH 10:00
PROVIDERS: ATTEND Internal Medicine Gastroenterology
DX: K57.30 Diverticulosis of large intestine without perforation or abscess without bleeding (principal); K42.9 Umbilical hernia without obstruction or gangrene
CPT/HCPCS: 74178

== ENCOUNTER 2020-07-27 12:07 | Emergency (ER) | payer OTHER, MEDICARE ==
[2020-07-27] MEDS ORDERED: SODIUM CHLORIDE 0.9% 1000ML 1,000 ML IV ONE (12:08)
[2020-07-27 12:46] LABS: BASOPHILS % (AUTO) 0.7 % (0.0-5.0); EOSINOPHILS % (AUTO) 0.8 % (0.0-8.0); HEMATOCRIT 39.9 % (36-48); LYMPHOCYTES % (AUTO) 36.3 % (21.0-51.0); MEAN CORPUSCULAR HEMOGLOBIN 30.2 pg (27.0-33.0); MEAN CORPUSCULAR HGB CONC 34.6 g/dL (32.0-36.0); MEAN CORPUSCULAR VOLUME 87.3 fL (79-99); MONOCYTES % (AUTO) 5.1 % (3.0-13.0); NEUTROPHILS % (AUTO) 56.8 % (40.0-77.0); PLATELET COUNT (AUTO) 199 K/uL (130-400); RED BLOOD CELL COUNT(AUTO) 4.57 MIL/uL (4.00-5.50); RED CELL DISTRIBUTION WIDTH 12.3 % (11.0-15.5); WHITE BLOOD COUNT (AUTO) 6.1 K/uL (4.8-10.8)
[2020-07-27 12:58] LABS: INR 0.92 (0.85-1.15); PARTIAL THROMBOPLASTIN TIME 23.9 SEC (26.3-35.5)
[2020-07-27 13:06] LABS: ALBUMIN 3.6 g/dL (3.5-5.0); BILIRUBIN,TOTAL 0.5 mg/dL (0.2-1.0); POTASSIUM 3.8 mmol/L (3.5-5.1); TOTAL PROTEIN, SERUM 7.5 g/dL (6.0-8.3)
[2020-07-27 13:15] LABS: CREATININE 0.9 mg/dL (0.5-1.5)
[2020-07-27 13:41] LABS: APPEARANCE,URINE Clear (CLEAR); BILIRUBIN,URINE Negative (NEGATIVE); COLOR,URINE Yellow (YELLOW); GLUCOSE, URINE (UA) >=1000 mg/dL (NEGATIVE); KETONES,URINE Negative (NEGATIVE); LEUKOCYTE ESTERASE ,URINE Negative (NEGATIVE); NITRATE,URINE Positive (NEGATIVE); OCCULT BLOOD,URINE Trace (NEGATIVE); PH,URINE 5.5 (5.0-8.0); PROTEIN,URINE POS 2+ mg/dL (NEGATIVE); UROBILINOGEN,URINE 0.2 mg/dL (0.2-1.0)
[2020-07-27 14:08] LABS: BACTERIA,URINE Many /HPF (None Seen); RBC,URINE 0-1 /HPF (0-1); SQUAMOUS EPITHELIAL CELL,UR Rare /HPF (0-2)
[2020-07-27] MEDS ORDERED: INSULIN HUMULIN R 100 UNIT/ML 3ML ONE (14:11)
[2020-07-27] MEDS ORDERED: CEFTRIAXONE SODIUM 1 GM ONE (14:16)
[2020-07-27] MEDS ORDERED: IOHEXOL-350 75 ML VIAL IV ONE (15:16)
== END 2020-07-27 17:52 | disposition home or self-care (01) ==
LOC: EDH 12:07
DX: E11.65 Type 2 diabetes mellitus with hyperglycemia (principal); R10.13 Epigastric pain; I10 Essential (primary) hypertension; E78.5 Hyperlipidemia, unspecified; E11.9 Type 2 diabetes mellitus without complications; M19.90 Unspecified osteoarthritis, unspecified site; Z90.49 Acquired absence of other specified parts of digestive tract; Z90.710 Acquired absence of both cervix and uterus
CPT/HCPCS: 36415; 71045; 74177; 80053; 81001; 82010; 82550; 82948 ×2; 83690; 84484; 85025; 85610; 85730; 87040 ×2; 87077; 87088; 87186; 93005; 96361; 96374; 96375; 99285; J0696; J1815; J7030; Q9967

== ENCOUNTER 2020-10-29 10:30 | Emergency (ER) | payer OTHER, MEDICARE ==
[2020-10-29 10:55] LABS: BASOPHILS % (AUTO) 0.5 % (0.0-5.0); HEMATOCRIT 42.2 % (36-48); LYMPHOCYTES % (AUTO) 17.7 % (21.0-51.0); MEAN CORPUSCULAR HEMOGLOBIN 29.2 pg (27.0-33.0); MEAN CORPUSCULAR HGB CONC 33.9 g/dL (32.0-36.0); MEAN CORPUSCULAR VOLUME 86.1 fL (79-99); MONOCYTES % (AUTO) 5.8 % (3.0-13.0); NEUTROPHILS % (AUTO) 75.8 % (40.0-77.0); PLATELET COUNT (AUTO) 167 K/uL (130-400); RED CELL DISTRIBUTION WIDTH 12.6 % (11.0-15.5); WHITE BLOOD COUNT (AUTO) 4.3 K/uL (4.8-10.8)
[2020-10-29 11:15] LABS: ALBUMIN 3.2 g/dL (3.5-5.0); BILIRUBIN,TOTAL 0.8 mg/dL (0.2-1.0); CREATININE 1.3 mg/dL (0.5-1.5); POTASSIUM 4.7 mmol/L (3.5-5.1); TOTAL PROTEIN, SERUM 7.7 g/dL (6.0-8.3)
[2020-10-29] MEDS ORDERED: ACETAMINOPHEN 325 MG TAB ONE ×2 (11:31→11:34)
[2020-10-29] MEDS ORDERED: SODIUM CHLORIDE 0.9% 1000ML 1,000 ML IV ONE (11:32)
[2020-10-29 11:47] LABS: APPEARANCE,URINE Clear (CLEAR); BILIRUBIN,URINE Negative (NEGATIVE); COLOR,URINE Yellow (YELLOW); GLUCOSE, URINE (UA) >=1000 mg/dL (NEGATIVE); KETONES,URINE 15 mg/dL (NEGATIVE); LEUKOCYTE ESTERASE ,URINE Small (NEGATIVE); NITRATE,URINE Negative (NEGATIVE); OCCULT BLOOD,URINE Small (NEGATIVE); PROTEIN,URINE POS 1+ mg/dL (NEGATIVE); UROBILINOGEN,URINE 0.2 mg/dL (0.2-1.0)
[2020-10-29] MEDS ORDERED: INSULIN HUMULIN R 100 UNIT/ML 3ML ONE ×2 (11:48→13:06)
[2020-10-29 12:04] LABS: BACTERIA,URINE Few /HPF (None Seen)
[2020-10-29 12:05] LABS: SQUAMOUS EPITHELIAL CELL,UR Few /HPF (0-2)
[2020-10-29] MEDS ORDERED: CEFTRIAXONE SODIUM 1 GM ONE (12:25)
== END 2020-10-29 13:46 | disposition home or self-care (01) ==
LOC: EDH 10:30
DX: M79.10 Myalgia, unspecified site (principal); E11.65 Type 2 diabetes mellitus with hyperglycemia; Z20.822 Contact with and (suspected) exposure to COVID-19; M19.90 Unspecified osteoarthritis, unspecified site; E78.5 Hyperlipidemia, unspecified; I10 Essential (primary) hypertension; Z90.49 Acquired absence of other specified parts of digestive tract; Z90.710 Acquired absence of both cervix and uterus
CPT/HCPCS: 36415; 71045; 80053; 81001; 82010; 82948 ×2; 85025; 87040; 87077; 87088; 87186; 87426; 96361; 96365; 96375; 96376; 99284; J0696; J1815 ×2; J7030; U0003

== ENCOUNTER 2022-06-08 10:53 | Emergency (ER) | payer OTHER, MEDICARE ==
[~2022-06-08] VITALS: Ht 154.9 cm; Wt 63.5 kg
[~2022-06-08 10:53] MED LIST changes: +ASPI-1197 PO; +ATOR40TA69 PO; +BISA-151 PO; +CARV6.25 PO; +CLOP75TA14 PO; +FAMO20TA8 PO; +IBUP-2077 PO; +LISI20TA24 PO; +METO5TAB2 PO; -OMEP40CA13 PO; +OMEP40CA21 PO; +ROSU5TAB12 PO
[2022-06-08] MEDS ORDERED: TETANUS/DIPHTHERIA TOXOID [ADULT] 0.5 ML VIAL IM ONE (13:00)
[2022-06-08] MEDS ORDERED: CEPH500B PO (13:43)
[2022-06-08 14:01] VITALS: BP 155/71
== END 2022-06-08 13:58 | disposition home or self-care (01) ==
LOC: EDH 10:53
DX: S80.811A Abrasion, right lower leg, initial encounter (principal); S81.831A Puncture wound without foreign body, right lower leg, initial encounter; E11.9 Type 2 diabetes mellitus without complications; I10 Essential (primary) hypertension; E78.00 Pure hypercholesterolemia, unspecified; Z98.890 Other specified postprocedural states; Z79.84 Long term (current) use of oral hypoglycemic drugs; Z79.899 Other long term (current) drug therapy; Z79.4 Long term (current) use of insulin; Z79.82 Long term (current) use of aspirin; X58.XXXA Exposure to other specified factors, initial encounter; Y93.89 Activity, other specified; Y92.89 Other specified places as the place of occurrence of the external cause; Y99.8 Other external cause status
CPT/HCPCS: 73590; 90471; 90714

== ENCOUNTER 2023-08-15 10:45 | Emergency (ER) | payer OTHER, MEDICARE ==
[~2023-08-15] VITALS: Ht 154.9 cm; Wt 61.7 kg
[~2023-08-15 10:45] MED LIST changes: +CEPH500B PO; +CLOP-31 PO; -CLOP75TA14 PO
[2023-08-15 11:31] LABS: BASOPHILS # (AUTO) 0.06 K/uL (0.00-0.20); BASOPHILS % (AUTO) 0.9 % (0.0-5.0); EOSINOPHILS # (AUTO) 0.09 K/uL (0.00-0.70); EOSINOPHILS % (AUTO) 1.4 % (0.0-8.0); HEMATOCRIT 38.3 % (36-48); IMMATURE GRANULOCYTE ABSOLUTE 0.01 K/uL (0-1); LYMPHOCYTES # (AUTO) 2.1 K/uL (1.0-4.8); LYMPHOCYTES % (AUTO) 33.4 % (21.0-51.0); MEAN CORPUSCULAR HEMOGLOBIN 29.9 pg (27.0-33.0); MEAN CORPUSCULAR HGB CONC 34.5 g/dL (32.0-36.0); MEAN CORPUSCULAR VOLUME 86.8 fL (79-99); MONOCYTES # (AUTO) 0.4 K/uL (0.1-1.0); MONOCYTES % (AUTO) 5.7 % (3.0-13.0); NEUTROPHILS # (AUTO) 3.7 K/uL (1.8-7.7); NEUTROPHILS % (AUTO) 58.4 % (40.0-77.0); PLATELET COUNT (AUTO) 246 K/uL (130-400); RED BLOOD CELL COUNT(AUTO) 4.41 MIL/uL (4.00-5.50); RED CELL DISTRIBUTION WIDTH 11.9 % (11.0-15.5); WHITE BLOOD COUNT (AUTO) 6.4 K/uL (4.8-10.8)
[2023-08-15 11:48] LABS: CREATININE 1.1 mg/dL (0.5-1.5); POTASSIUM 4.6 mmol/L (3.5-5.1)
[2023-08-15 12:00] LABS: B-TYPE NATRIURETIC PEPTIDE 56 pg/mL (0-100)
[2023-08-15 12:01] LABS: INR < 0.93 (0.85-1.15); PROTHROMBIN TIME 10.5 SEC (9.6-11.6)
[2023-08-15 12:02] LABS: PARTIAL THROMBOPLASTIN TIME 26.6 SEC (26.3-35.5)
[2023-08-15 12:19] LABS: APPEARANCE,URINE CLEAR (CLEAR); BILIRUBIN,URINE NEGATIVE (NEGATIVE); COLOR,URINE LIGHT-YELLOW (YELLOW); GLUCOSE, URINE (UA) 150 mg/dL (NEGATIVE); KETONES,URINE NEGATIVE (NEGATIVE); LEUKOCYTE ESTERASE ,URINE NEGATIVE Leu/uL (NEGATIVE); NITRATE,URINE 2+ (NEGATIVE); OCCULT BLOOD,URINE NEGATIVE (NEGATIVE); PH,URINE 5.5 (5.0-8.0); PROTEIN,URINE 30 mg/dL (NEGATIVE); UROBILINOGEN,URINE 0.2 mg/dL (0.2-1.0)
[2023-08-15 12:21] LABS: ADD UA MICROSCOPIC YES
[2023-08-15 12:22] LABS: BACTERIA,URINE MANY /HPF (None Seen); MUCUS,URINE RARE LPF (None Seen); RBC,URINE 0-1 /HPF (0-1); SQUAMOUS EPITHELIAL CELL,UR RARE /HPF (0-2)
[2023-08-15] MEDS ORDERED: GADOTERATE MEGLUMINE 10 MMOL/20 ML VIAL IV ONE (14:47)
[2023-08-15] MEDS ORDERED: METOCLOPRAMIDE 10 MG/2 ML VIAL IVP ONE (15:30)
[2023-08-15] MEDS ORDERED: MORPHINE 2 MG SYG IVP ONE (15:30)
[2023-08-15 17:06] VITALS: BP 170/68; PULSE 59; RESP 18; O2SAT 99
== END 2023-08-15 17:59 | disposition home or self-care (01) ==
LOC: EDH 10:45
DX: E86.0 Dehydration (principal); E11.9 Type 2 diabetes mellitus without complications; E78.00 Pure hypercholesterolemia, unspecified; Z79.4 Long term (current) use of insulin; Z79.899 Other long term (current) drug therapy; I25.2 Old myocardial infarction; Z86.73 Personal history of transient ischemic attack (TIA), and cerebral infarction without residual deficits
CPT/HCPCS: 99284; 70553; 71045; 82550; 83721; 84484; 80048; 83880; 85025; 85610; 85730; 87077; 87088; 87186; 81001; 36415; 93005; A9575

== ENCOUNTER 2024-04-10 06:44 | Emergency (ER) | payer OTHER, MEDICARE ==
[~2024-04-10] VITALS: Ht 154.9 cm; Wt 60.8 kg
[~2024-04-10 06:44] MED LIST changes: -ROSU5TAB12 PO; +ROSU5TAB43 PO
[2024-04-10] MEDS: KETOROLAC 15MG/ML VIAL (15MG/ML) IM ONE (07:41)
[2024-04-10] MEDS: CYCLOBENZAPRINE HCL 10 MG TABLET PO ONE (07:42)
[2024-04-10 08:26] LABS: APPEARANCE,URINE CLOUDY (CLEAR); BILIRUBIN,URINE NEGATIVE (NEGATIVE); COLOR,URINE LIGHT-YELLOW (YELLOW); GLUCOSE, URINE (UA) TRACE mg/dL (NEGATIVE); KETONES,URINE NEGATIVE (NEGATIVE); LEUKOCYTE ESTERASE ,URINE 75 Leu/uL (NEGATIVE); NITRATE,URINE NEGATIVE (NEGATIVE); OCCULT BLOOD,URINE NEGATIVE (NEGATIVE); PH,URINE 6.5 (5.0-8.0); PROTEIN,URINE 30 mg/dL (NEGATIVE); UROBILINOGEN,URINE 0.2 mg/dL (0.2-1.0)
[2024-04-10] MEDS ORDERED: PRED20TA3 PO (08:58)
[2024-04-10] MEDS ORDERED: IBUP-2070 PO (08:58)
[2024-04-10] MEDS ORDERED: TRAM50TA4 PO (08:58)
[2024-04-10] MEDS ORDERED: CYCL-309 PO (08:58)
[2024-04-10] MEDS ORDERED: HYDROMORPHONE 0.5 MG SYG (0.5MG/0.5ML) IVP ONE (09:00)
[2024-04-10] MEDS ORDERED: SOLU-MEDROL 125MG VIAL IVP ONE (09:00)
[2024-04-10] MEDS: HYDROMORPHONE 0.5 MG SYG (0.5MG/0.5ML) IM ONE (09:19)
[2024-04-10] MEDS: SOLU-MEDROL 125MG VIAL IM ONE (09:19)
[2024-04-10 09:24] LABS: ADD UA MICROSCOPIC YES
[2024-04-10 09:28] LABS: BACTERIA,URINE MOD /HPF (None Seen); MUCUS,URINE RARE LPF (None Seen); OTHER CASTS, URINE 3 /LPF (None Seen); SQUAMOUS EPITHELIAL CELL,UR FEW /HPF (0-2)
[2024-04-10] MEDS ORDERED: NITR100C4 PO (10:19)
[2024-04-10 10:26] VITALS: BP 200/78; PULSE 55; RESP 16; O2SAT 98
== END 2024-04-10 11:18 | disposition home or self-care (01) ==
LOC: EDH 06:44
DX: M54.50 Low back pain, unspecified (principal); E11.65 Type 2 diabetes mellitus with hyperglycemia; E78.00 Pure hypercholesterolemia, unspecified; I25.10 Atherosclerotic heart disease of native coronary artery without angina pectoris; N39.0 Urinary tract infection, site not specified; I10 Essential (primary) hypertension; M48.062 Spinal stenosis, lumbar region with neurogenic claudication; Z79.4 Long term (current) use of insulin; Z79.899 Other long term (current) drug therapy; Z86.73 Personal history of transient ischemic attack (TIA), and cerebral infarction without residual deficits
CPT/HCPCS: 99285; 72131; 87086 ×2; 87186; 81001; 96372 ×3; J2919; J1885; J1170

== ENCOUNTER → 2024-04-16 | Outpatient (CLI) | payer OTHER ==
[~2024-04-16] MED LIST changes: +CYCL-309 PO; +IBUP-2070 PO; +NITR100C4 PO; +PRED20TA3 PO
== END | disposition home or self-care (01) ==
LOC: RAH 12:42
PROVIDERS: ATTEND Internal Medicine Cardiovascular Disease
DX: Z13.6 Encounter for screening for cardiovascular disorders (principal)
CPT/HCPCS: 75571

== ENCOUNTER 2024-05-15 09:47 | Emergency (ER) | payer OTHER, MEDICARE ==
[~2024-05-15] VITALS: Ht 154.9 cm; Wt 61.7 kg
[2024-05-15 09:49] VITALS: BP 159/84; PULSE 61; RESP 20; TEMP 98
[2024-05-15] MEDS ORDERED: CYCL10TA16 PO (10:22)
[2024-05-15] MEDS ORDERED: IBUP-2070 PO (10:22)
[2024-05-15] MEDS: acetaMINOPHEN 500 MG TABLET PO ONE (10:41)
[2024-05-15] MEDS: CYCLOBENZAPRINE HCL 10 MG TABLET PO ONE (10:42)
[2024-05-15] MEDS: ketOROlac 30MG VIAL (30MG/ML) IVP ONE (10:42)
== END 2024-05-15 11:24 | disposition home or self-care (01) ==
LOC: EDH 09:47
DX: M54.50 Low back pain, unspecified (principal); G89.29 Other chronic pain; E11.9 Type 2 diabetes mellitus without complications; I10 Essential (primary) hypertension; I25.10 Atherosclerotic heart disease of native coronary artery without angina pectoris; I25.2 Old myocardial infarction; Z86.73 Personal history of transient ischemic attack (TIA), and cerebral infarction without residual deficits; Z79.2 Long term (current) use of antibiotics; Z79.899 Other long term (current) drug therapy; Z79.82 Long term (current) use of aspirin; Z79.4 Long term (current) use of insulin; Z79.84 Long term (current) use of oral hypoglycemic drugs; Z98.890 Other specified postprocedural states; V89.2XXA Person injured in unspecified motor-vehicle accident, traffic, initial encounter; Y93.89 Activity, other specified; Y92.488 Other paved roadways as the place of occurrence of the external cause; Y99.8 Other external cause status
CPT/HCPCS: 99283; 96374; J1885

== ENCOUNTER 2024-10-01 10:20 | Emergency (ER) | payer OTHER, MEDICARE ==
[~2024-10-01] VITALS: Ht 154.9 cm; Wt 59.9 kg
[~2024-10-01 10:20] MED LIST changes: +CYCL10TA16 PO; -ROSU5TAB43 PO; +ROSU5TAB51 PO
--- NOTE | 2024-10-01 10:37 | ERN ---
General Chief Complaint: Cough Stated Complaint: SOB,MULTIPLE COMPLAINTS Time Seen by MD: 10:22 History of Present Illness Initial Comments 68-year-old female who presents for pleuritic type chest pain, productive cough, upper back pain beginning yesterday. She reports sore throat and body aches. Subjective fever. No sputum production. No vomiting or diarrhea. Allergies: Coded Allergies: No Known Drug Allergies (Unverified Allergy, Unknown, 05/15/19) Home Meds Active Scripts Oseltamivir Phosphate (Tamiflu) 75 Mg Cap, 1 CAP PO BID for 5 Days, #10 CAP 0 Refills Prov:BEAR RICHARD DO 10/01/24 Ibuprofen (Ibuprofen) 600 Mg Tablet, 600 MG PO Q6H PRN for PAIN, #30 TAB Prov:EMILY METZGER NP 05/15/24 Cyclobenzaprine HCl (Flexeril) 10 Mg Tab, 10 MG PO TID for muscle sstiffness, #14 TAB 0 Refills Prov:EMILY METZGER NP 05/15/24 Nitrofurantoin Monohyd/M-Cryst (Macrobid 100 mg Capsule) 100 Mg Capsule, 100 MG PO BID, #14 CAP Prov:PAULA HERNANDEZ MD 04/10/24 Ibuprofen (Ibuprofen) 600 Mg Tablet, 600 MG PO Q6H PRN for PAIN, #30 TAB Prov:PAULA HERNANDEZ MD 04/10/24 Tramadol Hcl (Tramadol HCl) 50 Mg Tablet, 50 MG PO QID for pain, #16 TAB 0 Refills Prov:PAULA HERNANDEZ MD 04/10/24 Cyclobenzaprine HCl (Cyclobenzaprine HCl) 10 Mg Tablet, 10 MG PO TID for back pain, #30 TAB Prov:PAULA HERNANDEZ MD 04/10/24 Prednisone (Prednisone) 20 Mg Tablet, 1 TAB PO AD for 6 Days, #14 TAB 0 Refills TAKE 1 TAB BY MOUTH THREE TIMES PER DAY X3 DAYS, THEN TAKE 1 TAB BY MOUTH TWICE A DAY X2 DAYS, THEN TAKE 1 TAB BY MOUTH ONCE A DAY X1 DAY. Prov:PAULA HERNANDEZ MD 04/10/24 Cephalexin Monohydrate (Keflex) 500 Mg Cap, 500 MG PO TID for 7 Days, #21 CAP Prov:JOHANN ADEN MD 06/08/22 Reported Medications Atorvastatin Calcium (LIPITOR) 40 Mg Tablet, 40 MG PO HS, TAB 01/01/22 Clopidogrel Bisulfate (Plavix) 75 Mg Tablet, 75 MG PO AM, TAB 01/01/22 Aspirin (Aspirin) 81 Mg Tab.chew, 81 MG PO AM, TAB.CHEW 01/01/22 Lisinopril (Lisinopril) 20 Mg Tablet, 20 MG PO AM, TAB 12/29/21 Rosuvastatin Calcium (Rosuvastatin Calcium) 5 Mg Tablet, 5 MG PO AM, TAB 12/29/21 Bisacodyl (Bisacodyl) 5 Mg Tablet.dr, 5 MG PO DAILY, TAB 12/29/21 Metoclopramide HCl (Metoclopramide HCl) 5 Mg Tablet, 5 MG PO BID, TAB 12/29/21 Ibuprofen (Ibuprofen 800 mg Tab) 800 Mg Tab, 800 MG PO Q6H, TAB 12/29/21 Famotidine (Famotidine) 20 Mg Tablet, 20 MG PO HS, TAB 12/29/21 Carvedilol (Carvedilol) 6.25 Mg Tablet, 6.25 MG PO BID, TAB 12/29/21 Insulin Glargine,Hum.rec.anlog (Lantus) 100 Units/Ml Inj, 28 UNITS SQ BID, ML 09/11/18 Nitroglycerin (Nitrostat) 0.4 Mg Tab.subl, 0.4 MG SL AD PRN for chest pain, TAB.SL 08/13/18 Tramadol Hcl (Tramadol HCl) 50 Mg Tablet, 50 MG PO AD PRN for prn, TAB pain 02/11/18 Omeprazole (Omeprazole) 40 Mg Capsule.dr, 40 MG PO DAILY, CAP 02/11/18 Hydrochlorothiazide (Hydrochlorothiazide) 12.5 Mg Tablet, 12.5 MG PO DAILY, TAB 12/30/17 Metformin HCl (Metformin HCl) 1,000 Mg Tablet, 1000 MG PO BIDMEALS, TAB 12/30/17 Fenofibrate Nanocrystallized (Fenofibrate) 145 Mg Tablet, 145 MG PO HS, TAB 12/30/17 Past Medical History Past Medical History: CAD, Diabetes-Type II, Hypertension, MD, Stroke, Other Past Surgical History: Other Surgical History Other: CATARACT SURGERY 03/26/24 Family History Family History: Negative Social History Social History: Negative, Other Female( History) History: Not Applicable ROS Dictation CONSTITUTIONAL: No chills, no fever, no weakness, no diaphoresis, no malaise. HEAD/FACE: No signs of trauma. EENT: No eye pain, no blurred vision, no tearing, no double vision, no ear pain, no ear discharge, no nose pain, no nasal congestion, no throat pain, no throat swelling, no mouth pain. RESPIRATORY: Cough, chest wall pain pleuritic chest chest pain CARDIOVASCULAR: Pleuritic type chest pain GASTROINTESTINAL/ABDOMINAL: No abdominal pain, no constipation, no diarrhea, no nausea, no vomiting. GENITOURINARY: No abnormal discharge, no dysuria, no frequent urination, no hematuria. No complaints of pain in the genitals. MUSCULOSKELETAL: No back pain, no gout, no joint pain, no joint swelling, no muscle pain, no muscle stiffness, no neck pain. INTEGUMENTARY: No change in color, no change in hair/nails, no dryness, no lesion, no lumps, no rash. NEUROLOGICAL/PSYCH: No anxiety, not depressed, no emotional problem, no headache, no numbness, no pre-existing deficit, no history of seizures, no tremors, no weakness. HEMATOLOGIC/LYMPHATIC: Not anemic, no history of blood clots, no apparent bleeding, no bruising, glands not swollen. All Systems Negative, Except as Noted. Physical Exam Physical Exam Dictation VITAL SIGNS: Reviewed. GENERAL APPEARANCE: Alert, oriented x3, no acute distress, HEAD AND FACE: Non-traumatic. EYES: PERRL, pink conjunctivas, eyelid no trauma, anterior chamber clear. EARS: Pinnas intact and no signs of trauma or erythema. Ear canals clear and no discharge. TMs no erythema. NOSE: No discharge, no bleeding. OROPHARYNX: Mouth normal, teeth no caries, tongue pink. Pharynx clear, no erythema. Tonsils no exudates, no abscesses noted. Mucous membrane moist. NECK: Supple, non-tender, no thyromegaly, no masses, no JVD, no bruits. BREAST: Deferred. CHEST: No tenderness, no crepitus, no paradoxical movement, no retractions. LUNGS: Clear, well-ventilated, symmetric, no rales, no wheezing, no rhonchi, no stridor, good breath sounds bilaterally. HEART: Regular rate, regular rhythm, no murmur, no gallops. VASCULAR: No peripheral edema. ABDOMEN: Soft, positive bowel sounds, nondistended, no guarding, nontender, no rebound, no masses no hepatomegaly, no splenomegaly, no Orellana's sign, no herni as. RECTAL: Deferred. GENITAL: Deferred. NEUROLOGICAL: Normal speech, gross motor function intact, gross sensory function intact. MUSCULOSKELETAL: Neck nontender, full range of motion, back nontender, full range of motion. EXTREMITIES: Nontender, full range of motion. SKIN: Color pink, dry, no turgor, no rash, no lacerations, no abrasions, no contusions. LYMPHATICS: Deferred. Results Laboratory and Microbiology Lab and Micro Result Laboratory Tests Test 10/01/24 10:52 10/01/24 12:40 White Blood Count 5.5 K/uL (4.8-10.8) Red Blood Count 4.61 MIL/uL (4.00-5.50) Hemoglobin 13.6 g/dL (12.0-16.0) Hematocrit 40.6 % (36-48) Mean Corpuscular Volume 88.1 fL (79-99) Mean Corpuscular Hemoglobin 29.5 pg (27.0-33.0) Mean Corpuscular Hemoglobin Concent 33.5 g/dL (32.0-36.0) Red Cell Distribution Width 12.7 % (11.0-15.5) Platelet Count 144 K/uL (130-400) Mean Platelet Volume 12.8 fL (7.5-10.5) H Immature Granulocyte % (Auto) 0.2 % (0-1) Neutrophils (%) (Auto) 69.6 % (40.0-77.0) Lymphocytes (%) (Auto) 16.7 % (21.0-51.0) L Monocytes (%) (Auto) 12.1 % (3.0-13.0) Eosinophils (%) (Auto) 0.9 % (0.0-8.0) Basophils (%) (Auto) 0.5 % (0.0-5.0) Neutrophils # (Auto) 3.8 K/uL (1.8-7.7) Lymphocytes # (Auto) 0.9 K/uL (1.0-4.8) L Monocytes # (Auto) 0.7 K/uL (0.1-1.0) Eosinophils # (Auto) 0.05 K/uL (0.00-0.70) Basophils # (Auto) 0.03 K/uL (0.00-0.20) Absolute Immature Granulocyte (auto 0.01 K/uL (0-1) Nucleated Red Blood Cells 0.0 % (0.0-0.19) Sodium Level 137 mmol/L (136-145) Potassium Level 4.3 mmol/L (3.5-5.1) Chloride Level 99 mmol/L (101-111) L Carbon Dioxide Level 29 mmol/L (21-32) Blood Urea Nitrogen 15 mg/dL (7-18) Creatinine 1.2 mg/dL (0.5-1.0) H Glomerular Filtration Rate Calc 49 mL/min (>90) Random Glucose 201 mg/dL (70-105) H Lactic Acid Level 0.8 mmol/L (0.8-2.5) Total Calcium 9.4 mg/dL (8.5-10.1) Total Creatine Kinase 38 U/L (21-232) Troponin I High Sensitivity 8.9 ng/L (4-50) B-Type Natriuretic Peptide 143 pg/mL (0-100) H Influenza Type A Antigen Positive For Type A Influenza Type B Antigen Negative For Type B SARS-CoV-2 Antigen (Rapid) PRESUMPTIVE NEGATIVE MDM CC: Cough sore throat shortness of breath, back pain, flu-like illness Historian: Patient Comorbidities: CAD, DM type 2, hypertension, MD, stroke without deficits Initial vital signs: Temp 101.1, oxygen saturation stable. Blood pressure mildly hypertensive. Otherwise unremarkable. Differential diagnosis: Flu-like illness, SIRS, sepsis, pneumonia, other. Labs (independently ordered and interpreted by me ): CBC is normal without any leukocytosis or anemia. Metabolic panel unremarkable. Glucose 201. Lactic acid normal CK normal troponin normal. BNP 143. Flu A positive, consistent with symptoms. CXR (independently ordered and interpreted by me): No focal infiltrates or abnormalities. Treatment in the ER: 1 g Tylenol, 1 L of lactated Ringer's, 15 mg of IM Toradol. Re-evaluation: Fever improved, vitals are stable. No clinical signs of respiratory distress dehydration or toxicity. Plan: We will discharge with symptomatic support and a prescription for Tamiflu. Recommend PCP follow up and return to the emergency department as needed. ED Course Orders Procedure Category Date Status Time Cbc With Differential LAB 10/01/24 Complete 10:34 B-Type Natriuretic LAB 10/01/24 Complete Peptide 10:34 Cardiac Panel LAB 10/01/24 Complete 10:34 Chest 1vw RAD 10/01/24 Resulted 10:34 12 Lead Ekg Tracing- EKG 10/01/24 Complete Technical 10:34 Basic Metabolic Panel LAB 10/01/24 Complete 10:34 Influenza Type A & B, LAB 10/01/24 Complete Rapid 10:34 Covid19 (Sars Antigen LAB 10/01/24 Complete Rapid) 10:34 Ketorolac PHA 10/01/24 Complete Tromethamine 15mg/Ml 11:00 Lactated Ringers PHA 10/01/24 Complete 1000ml (Lactated 11:00 Acetaminophen 500mg PHA 10/01/24 Complete Tab (Tylenol 500mg T 11:00 Blood Cult ALLEN 10/01/24 In Process 10:37 Lactic Acid LAB 10/01/24 Complete 10:37 Current Medications Medications (Trade) Dose Ordered Sig/Dioni Route PRN Reason Start Time Stop Time Status Last Admin Dose Admin Acetaminophen (TYLenol 500MG TAB) 1,000 mg ONCE ONCE PO 10/01/24 11:00 10/01/24 11:01 DC 10/01/24 12:59 Ketorolac Tromethamine (toRADol) 15 mg ONCE ONCE IV 10/01/24 11:00 10/01/24 11:01 DC 10/01/24 12:59 Lactated Ringer's 1,000 ml @ 0 mls/hr ONCE ONCE IV 10/01/24 11:00 10/01/24 11:01 DC Vital Signs Date Time Temp Pulse Resp B/P (MAP) Pulse Ox O2 Delivery O2 Flow Rate FiO2 10/01/24 14:25 98.8 87 20 156/62 100 Room Air* 0 21 10/01/24 10:32 101.1 81 20 159/89 100 Room Air DX & DISP Disposition: Discharge Departure Impression: Primary Impression: Influenza A Condition: Stable Scripts Oseltamivir Phosphate (Tamiflu) 75 Mg Cap 1 CAP PO BID for 5 Days, #10 CAP 0 Refills Prov: BEAR RICHARD DO 10/01/24 Additional Instructions: You tested positive for influenza a, or the flu. This is causing your symptoms. Your lab work ( CBC, BMP, lactic acid, CK, troponin, BNP) is stable. Your chest x-ray is clear. I have prescribed Tamiflu. This medication has been shown to reduce the duration of symptoms with flu. Take as prescribed. I recommend that you use an [id number] cough and cold medication such as DayQuil or NyQuil. Please drink plenty of liquids. An electrolyte solution such as Gatorade or Pedialyte as good choice. Please follow up with your primary doctor in 48 hours for re-evaluation. Please return to the emergency department if you have any concerning symptoms such as respiratory distress, dehydration, lethargy, or any other concerns. Referrals: RONEY ZIMMERMAN MD (PCP) BEAR RICHARD DO Oct 01, 2024 10:37
[2024-10-01] MEDS: LACTATED RINGERS 1000ML 1,000 ML IV ONE (11:00)
[2024-10-01 11:15] LABS: CREATININE 1.2 mg/dL (0.5-1.0); POTASSIUM 4.3 mmol/L (3.5-5.1)
[2024-10-01 11:39] LABS: B-TYPE NATRIURETIC PEPTIDE 143 pg/mL (0-100)
[2024-10-01 11:43] LABS: BASOPHILS # (AUTO) 0.03 K/uL (0.00-0.20); BASOPHILS % (AUTO) 0.5 % (0.0-5.0); EOSINOPHILS # (AUTO) 0.05 K/uL (0.00-0.70); EOSINOPHILS % (AUTO) 0.9 % (0.0-8.0); HEMATOCRIT 40.6 % (36-48); IMMATURE GRANULOCYTE ABSOLUTE 0.01 K/uL (0-1); LYMPHOCYTES # (AUTO) 0.9 K/uL (1.0-4.8); LYMPHOCYTES % (AUTO) 16.7 % (21.0-51.0); MEAN CORPUSCULAR HEMOGLOBIN 29.5 pg (27.0-33.0); MEAN CORPUSCULAR HGB CONC 33.5 g/dL (32.0-36.0); MEAN CORPUSCULAR VOLUME 88.1 fL (79-99); MONOCYTES # (AUTO) 0.7 K/uL (0.1-1.0); MONOCYTES % (AUTO) 12.1 % (3.0-13.0); NEUTROPHILS # (AUTO) 3.8 K/uL (1.8-7.7); NEUTROPHILS % (AUTO) 69.6 % (40.0-77.0); PLATELET COUNT (AUTO) 144 K/uL (130-400); RED BLOOD CELL COUNT(AUTO) 4.61 MIL/uL (4.00-5.50); RED CELL DISTRIBUTION WIDTH 12.7 % (11.0-15.5); WHITE BLOOD COUNT (AUTO) 5.5 K/uL (4.8-10.8)
--- NOTE | 2024-10-01 11:51 | HMCIMG ---
Exam Type: CHEST 1VW Clinical Information: Dyspnea/SOB Comparison: None Findings: The lungs are clear of infiltrates. The heart is normal in size. The bony and soft tissue structures of the chest are unremarkable. Impression: Clear lungs.
[2024-10-01] MEDS: ketOROlac 15MG/ML VIAL (15MG/ML) IV ONE (12:59)
[2024-10-01] MEDS: acetaMINOPHEN 500 MG TABLET PO ONE (12:59)
[2024-10-01 13:44] LABS: COVID19 (SARS ANTIGEN RAPID) PRESUMPTIVE NEGATIVE (NEGATIVE)
[2024-10-01 13:45] LABS: INFLUENZA TYPE B Negative For Type B (NEGATIVE)
[2024-10-01 14:01] LABS: INFLUENZA TYPE A Positive For Type A (NEGATIVE)
--- NOTE | 2024-10-01 14:01 | NUR ---
FLU A+ ERMD MADE AWARE
[2024-10-01] MEDS ORDERED: OSEL75 PO (14:03)
[2024-10-01 14:25] VITALS: BP 156/62; PULSE 87; RESP 20; TEMP 98.7; O2SAT 100
--- NOTE | 2024-10-02 07:02 | EKG ---
[facility] Test Date: 2024-10-01 Test Time: 12:33:02 Pat Name: MICHAEL DAVIS Department: ED Room: Gender: F [employer] Manager: [id number] : 1955 Requested By: BEAR RICHARD Order Number: [id number] Reading MD: Vitaliy Matute Measurements Intervals Hulbert Rate: 77 P: 39 NH: 115 QRS: 11 QRSD: 76 T: 32 QT: 354 QTc: 402 Interpretive Statements Sinus rhythm Compared to ECG 08/15/2023 11:20:34 Left ventricular hypertrophy no longer present Electronically Signed On 10-03-2024 17:35:20 [employer] by Vitaliy Matute Please click the below link to view image of tracing.
== END 2024-10-01 14:29 | disposition left against medical advice (07) ==
LOC: EDH 10:20
DX: J10.1 Influenza due to other identified influenza virus with other respiratory manifestations (principal); I25.10 Atherosclerotic heart disease of native coronary artery without angina pectoris; E11.9 Type 2 diabetes mellitus without complications; I10 Essential (primary) hypertension; I25.2 Old myocardial infarction; Z79.4 Long term (current) use of insulin; Z79.899 Other long term (current) drug therapy; Z86.73 Personal history of transient ischemic attack (TIA), and cerebral infarction without residual deficits; Z20.822 Contact with and (suspected) exposure to COVID-19
CPT/HCPCS: 99285; 96374; 71045; 87426; 82550; 84484; 80048; 83880; 85025; 87040 ×2; 87804 ×2; 83605; 36415; 93005; J1885